=== PATIENT | female | born 1970 | race Caucasian/White ===

== ENCOUNTER 2017-04-07 17:58 | Emergency (ER) | payer OTHER ==
[~2017-04-07] VITALS: Ht 167.6 cm; Wt 102.0 kg
[~2017-04-07 17:58] MED LIST: ACET500C5 PO; ALBU8.5H3 INH; AZIT250T94 PO; CIPR500T4 PO; GLIP5TAB13 PO; IBUP200C PO; METF-480 PO; PRED20TA PO; TAMS-14 PO; [UNRECOGNIZED DRUG - REMARK]
[2017-04-07 18:09] VITALS: Ht 167.6 cm; Wt 102.0 kg
[2017-04-07] MEDS ORDERED: ONDANSETRON (ODT) 4 MG TAB ODT STA (19:27)
[2017-04-07] MEDS ORDERED: HYDROCODONE/APAP (10/325) TAB PO ONE (19:30)
[2017-04-07] MEDS ORDERED: DIPHTH/TET/ACEL PERTUSS (ADULT) 0.5 ML VIAL IM* ONE (19:30)
[2017-04-07] MEDS ORDERED: LIDOCAINE 1% (MDV) 20 ML INJ SC ONE (19:30)
--- NOTE | 2017-04-07 20:29 | RADRPT ---
PROCEDURE: XR left third toe CLINICAL INDICATION: Left third toe pain TECHNIQUE: Three views of the left third toe are available for review COMPARISON: No prior studies are available for comparison. FINDINGS: There is an acute mildly displaced fracture along the medial margin of the base of the third distal phalanx. No other fractures are identified. There is soft tissue swelling of the third digit. IMPRESSION: 1. Acute mildly displaced fracture along the medial margin of the base of the third distal phalanx w ith soft tissue swelling of the third digit. RPTAT: UU .Raul Black MD, MD Date Time Electronically viewed and signed by .Raul Black MD, on 04/07/2017 20:28 .K/
[2017-04-07] MEDS ORDERED: ONDA4TAB14 PO (20:39)
[2017-04-07] MEDS ORDERED: CLIN-73 PO (20:39)
[2017-04-07] MEDS ORDERED: HYDR-906 PO (20:39)
--- NOTE | 2017-04-07 21:27 | ERD ---
ER Documentation Chief Complaint Chief Complaint PT presents with L foot pain X 2 days HPI This is a 46-year-old female who presents to the emergency room with a laceration to the left third toe just prior to arrival. The patient states that they were trying to hang a mirror or picture frame and it fell and it shattered. The patient sustained a complicated and irregular laceration to the medial aspect of the left third toe. She describes throbbing pain that is 6 out of 10. She states unknown tetanus status. Pain is worse with movement. ROS All systems reviewed and are negative except as per history of present illness. Medications Home Meds Active Scripts Clindamycin Hcl* (Clindamycin Hcl*) 300 Mg Capsule, 300 MG PO TID for 10 Days, CAP Prov:UZAIR SERVIN MD 04/07/17 Ondansetron (Ondansetron Odt) 4 Mg Tab.rapdis, 4 MG PO Q6H Y for NAUSEA AND/OR VOMITING, #10 TAB Prov:UZAIR SERVIN MD 04/07/17 Hydrocodone/Acetaminophen (Maynard 5-325 Tablet) 1 Each Tablet, 1 TAB PO Q6H Y for PAIN, #7 TAB Prov:UZAIR SERVIN MD 04/07/17 Albuterol Sulfate* (Proair HFA*) 8.5 Gm Hfa.aer.ad, 2 PUFF INH Q4, #1 INHALER Prov:TRISTAN MARCH PA-C 06/22/16 Azithromycin* (Zithromax*) 250 Mg Tablet, 250 MG PO .ZPACK DIRECTED, #6 TAB TAKE 500 MG (2 TABS) THE FIRST DAY THEN 250 MG (1 TAB) DAYS 2-5 Prov:TRISTAN MARCH PA-C 06/22/16 Acetaminophen* (Tylophen*) 500 Mg Capsule, 1 CAP PO Q6H Y for PAIN AND OR ELEVATED TEMP, #20 CAP Prov:TRISTAN MARCH PA-C 06/22/16 Prednisone* (Prednisone*) 20 Mg Tab, 40 MG PO DAILY for 4 Days, TAB Prov:SABINE WAGONER PA-C 05/30/15 Albuterol Sulfate* (Proair HFA*) 8.5 Gm Hfa.aer.ad, 2 PUFF INH Q4, #1 INHALER Prov:SABINE WAGONER PA-C 05/30/15 Prednisone* (Prednisone*) 20 Mg Tab, 40 MG PO DAILY for 4 Days, TAB Prov:CHRIST SIDDIQUI Claudio 05/23/15 Albuterol Sulfate* (Proair HFA*) 8.5 Gm Hfa.aer.ad, 2 PUFF INH Q4, #1 INHALER Prov:CHRIST SIDDIQUI Claudio 05/23/15 Azithromycin* (Zithromax*) 250 Mg Tablet, 250 MG PO .ZPACK DIRECTED, #6 TAB TAKE 500 MG (2 TABS) THE FIRST DAY THEN 250 MG (1 TAB) DAYS 2-5 Prov:CHRIST SIDDIQUI Claudio 05/23/15 Ciprofloxacin Hcl* (Ciprofloxacin Hcl*) 500 Mg Tab, 500 MG PO BID@06,18 for 7 Days Prov:SUE MCKEON NP 01/12/14 Tamsulosin Hcl* (Flomax*) 0.4 Mg Capsr, 0.4 MG PO HS for 10 Days Prov:SUE MCKEON NP 01/12/14 Reported Medications Glipizide* (Glipizide*) 5 Mg Tablet, 5 MG PO BID, TAB 01/09/14 Metformin* (Glucophage*) 850 Mg Tablet, 850 MG PO BID, TAB 01/09/14 [Dm Medicine] No Conflict Check 06/08/13 Ibuprofen* (Ibuprofen*) 200 Mg Capsule, 400 MG PO Q6 Y for KAREN 06/08/13 Allergies Allergies: Coded Allergies: No Known Allergy (Unverified , 05/30/15) PMhx/Soc History of Surgery: No Anesthesia Reaction: No Hx Neurological Disorder: No Hx Respiratory Disorders: No Hx Cardiac Disorders: No Hx Psychiatric Problems: No Hx Miscellaneous Medical Probl: Yes (DM) Hx Alcohol Use: No Hx Substance Use: No Hx Tobacco Use: No Smoking Status: Never smoker FmHx Family History: diabetes Physical Exam Vitals Vital Signs Date Time Temp Pulse Resp B/P Pulse Ox O2 Delivery O2 Flow Rate FiO2 04/07/17 18:09 98.4 98 16 153/83 98 Physical Exam General: Well developed, well nourished, no acute distress Head: Normocephalic, atraumatic. Eyes: EOM intact ENT: Moist mucous membranes Neck: Full ROM Respiratory: No respiratory distress Cardiovascular: Good capillary refill Abdominal: Nondistended : Deferred MSK: The patient's left third toe has an irregular and T-shaped laceration of the medial aspect totaling approximately 3.0 cm. Soft tissue is exposed but no evidence of ligamentous, vascular tendinous injury. Good capillary refill. No significant limited range of motion. 2+ dorsalis pedis and posterior tibial pulses. Neurologic: Alert and oriented, moving all extremities, normal speech, steady gait Skin: Laceration as described above, no evidence of foreign body Psych: Normal mood Results 24 hrs Current Medications Medications (Trade) Dose Ordered Sig/[place] Route PRN Reason Start Time Stop Time Status Last Admin Dose Admin Acetaminophen/ Hydrocodone Bitart (Maynard (10/325)) 1 tab ONCE ONCE PO 04/07/17 19:30 04/07/17 19:31 DC 04/07/17 19:46 Ondansetron HCl (Zofran Odt) 4 mg ONCE STAT ODT 04/07/17 19:27 04/07/17 19:29 DC 04/07/17 19:46 Lidocaine (Xylocaine 1% (Mdv) 20 ml) 20 ml ONCE ONCE SC 04/07/17 19:30 04/07/17 19:31 DC Diphtheria/ Tetanus/Acell Pertussis (Adacel) 0.5 ml ONCE ONCE IM* 04/07/17 19:30 04/07/17 19:31 DC 04/07/17 19:47 Procedures/MDM X-ray left third toe: IMPRESSION: 1. Acute mildly displaced fracture along the medial margin of the base of the third distal phalanx with soft tissue swelling of the third digit. RPTAT: UU PROCEDURES: Laceration Note: The patient was verbally consented prior to procedure and understands the risks , benefits, and alternatives. The patient is agreeable to procedure and has given verbal consent. Length: 3.0 to the left third toe cm Irrigation: Thorough irrigation was performed with pressure is normal saline Inspection: There is no evidence of deep tissue or structural injury, no evidence of foreign bodies Anesthesia: Digital block using sterile procedure, 1% lidocaine without epinephrine approximately 4 cc total with good anesthesia Repair: Single-layer repair using three-point 0 Prolene a total number of 5 sutures with good approximation. A clean dressing was applied. The patient tolerated the procedure well with no complications. Splint Application Note: Splint type: Aleksey tape and orthopedic walking shoe Extremity: Left third toe Indication: Toe fracture The patient was consented at bedside prior to splint application and states understanding of risks, benefits, and alternatives. The patient was neurovascularly intact prior to and status post application of the splint. The patient tolerated the procedure well and there were no complications. MEDICAL DECISION MAKING: Pain control provided with medications. Tetanus updated. ER COURSE: Patient's wound was thoroughly irrigated and repaired as documented above. The patient does have evidence of a fracture. This is technically an open fracture and given the patient's diabetes she would benefit from empiric antibiotics in the form of clindamycin. I believe prompt outpatient follow-up at [facility] will be reasonable. Referral information provided. The patient was splinted and return precautions were discussed including spreading redness, fevers or chills. The patient verbalized understanding and a soda fountain operator was used during her ER course. I kept the patient and/or family informed of laboratory and diagnostic imaging results throughout the emergency room course. DISPOSITION PLAN: We discussed follow up with the patient's primary care doctor within 24 to 48 hours as needed. We also discussed return to the emergency room for worsening symptoms or worsening condition. Outpatient referral: Podiatry Discharge Medications: Maynard, Zofran, clindamycin Departure Diagnosis: Primary Impression: Toe fracture, left Encounter type: initial encounter Toe: unspecified toe Fracture type: open Fracture alignment: displaced Qualified Code: S92.912B - Open displaced fracture of phalanx of toe of left foot, unspecified toe, initial encounter Additional Impression: Laceration of toe Encounter type: initial encounter Toe: lesser toe Damage to nail status: without damage Foreign body presence: without foreign body Laterality: left Qualified Code: S91.115A - Laceration of lesser toe of left foot without foreign body present or damage to nail, initial encounter Condition: Stable Patient Instructions: Finger and Toe Fractures (Broken Finger or Toe), Laceration, All Referrals: [facility]) Usted se [place] hecho un examen mdico de control que le indica que no est en guillaume condicin que requiera tratamiento urgente en el Departamento de Emergencia. Un estudio ms profundo y el tratamiento de lozano condicin pueden esperar sin ningn riesgo hasta que usted sea atendida/o en el consultorio de lozano mdico o guillaume cl ramona. Es responsabilidad suya arreglar guillaume curtis para el seguimiento del jesus. MANEJO DE CONDICIONES NO URGENTES EN EL FUTURO 1) Si usted tiene un mdico de atencin primaria: Usted debera llamar a lozano mdico de atencin primaria antes de venir al departamento de emergencia. Despus de las horas de consultorio, lozano doctor o lozano asociado/a est disponible por telfono. El mdico o enfermero de roman en el servicio telefnico puede asesorarle por felix medio para atender el problema, o jesus contrario se puede programar guillaume curtis. 2) Si usted no tiene un mdico de atencin primaria: Llame al mdico o clnica de referencia que aparece abajo ashleigh las horas de consultorio para hacer guillaume curtis para que le vean. CLINICAS: [facility] [phone] [address] [facility] [phone] [address] [facility] [facility]. [facility] [phone] [facility] [phone] [facility] [place] [id number] [phone] [facility]. [phone] [address] . [facility] () Usted se [place] hecho un examen mdico de control que le indica que no est en guillaume condicin que requiera tratamiento urgente en el Departamento de Emergencia. Un estudio ms profundo y el tratamiento de lozano condicin pueden esperar sin ningn riesgo hasta que usted sea atendida/o en el consultorio de lozano mdico o guillaume cl ramona. Es responsabilidad suya arreglar guillaume curtis para el seguimiento del jesus. MANEJO DE CONDICIONES NO URGENTES EN EL FUTURO 1) Si usted tiene un mdico de atencin primaria: Usted debera llamar a lozano mdico de atencin primaria antes de venir al departamento de emergencia. Despus de las horas de consultorio, lozano doctor o lozano asociado/a est disponible por telfono. El mdico o enfermero de roman en el servicio telefnico puede asesorarle por felix medio para atender el problema, o jesus contrario se puede programar guillaume curtis. 2) Si usted no tiene un mdico de atencin primaria: Llame al mdico o condado institucions de referencia que aparece abajo ashleigh las horas de consultorio para hacer guillaume curtis para que le vean. SI USTED NO PUEDE PAGAR PARA SHARI UN MEDICO puede ir a: [facility] [address] [place] [address] [facility] [address] [place] [address] [facility] [address] [place] [address] [facility] [facility] [address] [place], [place] [phone] Additional Instructions: Suture removal in 10 days. Follow up with mapping specialist [place]lex[place]. Return for fever , worsening pain, redness or drainage. Llame al doctor MAANA y augustine guillaume CURTIS PARA DENTRO DE 2-3 MCRAE.Dgale a la secretaria que nosotros le instruimos hacer esta curtis.Avise o llame si lozano condicin se empeora antes de la curtis. Regresa aqui si peor o no mejor. UZAIR SERVIN MD Apr 07, 2017 21:27
== END 2017-04-07 20:53 | disposition home or self-care (01) ==
LOC: FTE 17:58
DX: S92.912B Unspecified fracture of left toe(s), initial encounter for open fracture (principal); E11.9 Type 2 diabetes mellitus without complications; W20.8XXA Other cause of strike by thrown, projected or falling object, initial encounter; Y92.9 Unspecified place or not applicable; Z23 Encounter for immunization; Z79.84 Long term (current) use of oral hypoglycemic drugs
CPT/HCPCS: 12002; 73660; 90471; 90715; Z7502; Z7610

== ENCOUNTER 2017-04-15 14:18 | Emergency (ER) | END 2017-04-15 20:10 | disposition home or self-care (01) ==

== ENCOUNTER 2017-04-20 05:55 | Emergency (ER) | END 2017-04-20 11:23 | disposition home or self-care (01) ==

== ENCOUNTER 2017-05-15 07:05 | Emergency (ER) | END 2017-05-15 08:37 | disposition home or self-care (01) ==

== ENCOUNTER 2017-05-21 03:31 | Emergency (ER) | END 2017-05-21 03:50 | disposition left against medical advice (07) ==

== ENCOUNTER 2017-05-22 17:16 | Emergency (ER) | END 2017-05-22 20:18 | disposition home or self-care (01) ==

== ENCOUNTER 2018-11-25 20:22 | Emergency (ER) | payer OTHER ==
[~2018-11-25] VITALS: Ht 160 cm; Wt 104.5 kg
[~2018-11-25 20:22] MED LIST changes: +ALBU18HF INHALATION; -ALBU8.5H3 INH; +ALBU8.5H8 INH; +AMOX1TAB9 PO; +AMOX500C2 PO; +AZIT250T PO; -AZIT250T94 PO; +CEPH-443 PO; +CLIN300C10 PO; +CYCL10TA7 PO; +GUAI-637 PO; +GUAI120S25 PO; +HYDR-4011 PO; +IBUP-1542 PO; +IBUP-1982 PO; -IBUP200C PO; +IBUP800T48 PO; +NAPR-985 PO; +ONDA4TAB14 PO; +PROM5SYR2 PO; +SODI126M NASAL; +SULF1TAB31 PO; +TRAM50TA2 PO
[2018-11-25 20:23] VITALS: Ht 160 cm; Wt 104.5 kg
--- NOTE | 2018-11-26 04:35 | ERD ---
ER Documentation Chief Complaint Chief Complaint Pt reports bump on ABD x 1 week HPI 48-year-old female with no significant past medical history presents emergency department for abscess to the left lower abdomen for the past 1 month but worsening over the past couple of days. Pain is intermittent and there are no alleviating or exacerbating factors. No other symptoms reported at this time. ROS All systems reviewed and are negative except as per history of present illness. Medications Home Meds Active Scripts Ibuprofen* (Motrin*) 600 Mg Tab, 600 MG PO Q6, #30 TAB Prov:ELISA MURRAY PA-C 11/26/18 Sulfamethoxazole/Trimethoprim* (Bactrim Ds* Tablet) 1 Each Tablet, 1 TAB PO BID, #14 TAB Prov:ELISA MURRAY PA-C 11/26/18 Cephalexin* (Keflex*) 500 Mg Capsule, 500 MG PO TID for 7 Days, CAP Prov:ELISA MURRAY PA-C 11/26/18 Amoxicillin/Potassium Clav (Amox-Clav 500-125 mg Tablet) 500-125 mg Tab, 1 TAB PO BID for 10 Days, TAB Prov:GEMMA GARY PA-C 10/31/18 Bomtudihzcy-T-Jrxnfsgjdz Hb* (Guaifenesin* DM Syrup) 120 Ml Syrup, 10 ML PO Q4H PRN for COUGH for 7 Days, ML Prov:GEMMA GARY PA-C 10/31/18 Prednisone* (Prednisone*) 20 Mg Tab, 40 MG PO DAILY for 4 Days, TAB Prov:XAVI HOLMAN MD 05/22/17 Albuterol Sulfate* (Proair HFA*) 8.5 Gm Hfa.aer.ad, 2 PUFF INH Q4H PRN for WHEEZING AND SOB, #1 INHALER Prov:XAVI HOLMAN MD 05/22/17 Promethazine HCl/Codeine (Prometh-Codein 6.25-10 mg/5 ml) 5 Ml Syrup, 5 ML PO QHS PRN for COUGH for 7 Days, #120 ML Prov:XAVI HOLMAN MD 05/22/17 Amoxicillin* (Amoxicillin*) 500 Mg Cap, 500 MG PO TID for 7 Days, CAP Prov:XAVI HOLMAN MD 05/22/17 Guaifenesin* (Robitussin*) 100 Mg/5 Ml Syrup, 200 MG PO Q4H PRN for COUGH, #120 ML Prov:BARBARA SCOTT NP 05/15/17 Sodium Chloride (Saline Nasal Mist) 126 Ml Mist, 2 SPRAY NASAL Q2H PRN for NASAL CONGESTION, #1 BOTTLE Prov:BARBARA SCOTT NP 05/15/17 Albuterol Sulfate* (Ventolin HFA*) 18 Gm Hfa.aer.ad, 2 PUFF INHALATION Q4H, #1 INHALER Prov:BARBARA SCOTT NP 05/15/17 Naproxen* (Naprosyn*) 500 Mg Tablet, 500 MG PO BID PRN for PAIN AND/OR INFLAMMATION, #30 TAB Prov:ASHANTI BLANTON PA-C 04/20/17 Tramadol HCl (Tramadol HCl) 50 Mg Tablet, 50 MG PO Q4 PRN for PAIN, #20 TAB Prov:ASHANTI BLANTON PA-C 04/20/17 Acetaminophen* (Tylophen*) 500 Mg Capsule, 1 CAP PO Q6H PRN for PAIN AND OR ELEVATED TEMP, #20 CAP Prov:IRINA MAN 04/15/17 Cyclobenzaprine Hcl* (Cyclobenzaprine Hcl*) 10 Mg Tablet, 10 MG PO Q12 PRN for MUSCLE SPASMS, #20 TAB Prov:IRINA MAN 04/15/17 Ibuprofen* (Motrin*) 800 Mg Tab, 800 MG PO Q8 PRN for PAIN AND OR ELEVATED TEMP, #30 TAB Prov:IRINA MAN 04/15/17 Cephalexin* (Keflex*) 500 Mg Capsule, 500 MG PO QID for 5 Days, CAP Prov:IRINA MAN 04/15/17 Clindamycin Hcl* (Clindamycin Hcl*) 300 Mg Capsule, 300 MG PO TID for 10 Days, CAP Prov:UZAIR SERVIN MD 04/07/17 Ondansetron (Ondansetron Odt) 4 Mg Tab.rapdis, 4 MG PO Q6H PRN for NAUSEA AND/OR VOMITING, #10 TAB Prov:UZAIR SERVIN MD 12/18/17 Hydrocodone/Acetaminophen ([place] 5-325 Tablet) 1 Each Tablet, 1 TAB PO Q6H PRN for PAIN, #7 TAB Prov:UZAIR SERVIN MD 04/07/17 Albuterol Sulfate* (Proair HFA*) 8.5 Gm Hfa.aer.ad, 2 PUFF INH Q4, #1 INHALER Prov:TRISTAN MARCHC 06/22/16 Azithromycin* (Zithromax*) 250 Mg Tablet, 250 MG PO .ZPACK DIRECTED, #6 TAB TAKE 500 MG (2 TABS) THE FIRST DAY THEN 250 MG (1 TAB) DAYS 2-5 Prov:TRISTAN MARCHC 06/22/16 Acetaminophen* (Tylophen*) 500 Mg Capsule, 1 CAP PO Q6H PRN for PAIN AND OR ELEVATED TEMP, #20 CAP Prov:TRISTAN MARCHC 06/22/16 Prednisone* (Prednisone*) 20 Mg Tab, 40 MG PO DAILY for 4 Days, TAB Prov:SABINE WAGONER PA-C 05/30/15 Albuterol Sulfate* (Proair HFA*) 8.5 Gm Hfa.aer.ad, 2 PUFF INH Q4, #1 INHALER Prov:SABINE WAGONER PA-C 05/30/15 Prednisone* (Prednisone*) 20 Mg Tab, 40 MG PO DAILY for 4 Days, TAB Prov:CHRIST SIDDIQUI 05/23/15 Albuterol Sulfate* (Proair HFA*) 8.5 Gm Hfa.aer.ad, 2 PUFF INH Q4, #1 INHALER Prov:CHRIST SIDDIQUI 05/23/15 Azithromycin* (Zithromax*) 250 Mg Tablet, 250 MG PO .ZPACK DIRECTED, #6 TAB TAKE 500 MG (2 TABS) THE FIRST DAY THEN 250 MG (1 TAB) DAYS 2-5 Prov:CHRIST SIDDIQUI 05/23/15 Ciprofloxacin Hcl* (Ciprofloxacin Hcl*) 500 Mg Tab, 500 MG PO BID@06,18 for 7 Days Prov:SUE MCKEON NP 01/12/14 Tamsulosin Hcl* (Flomax*) 0.4 Mg Capsr, 0.4 MG PO HS for 10 Days Prov:SUE MCKEON FRAME CATCHER 01/12/14 Reported Medications Glipizide* (Glipizide*) 5 Mg Tablet, 5 MG PO BID, TAB 01/09/14 Metformin* (Glucophage*) 850 Mg Tablet, 850 MG PO BID, TAB 01/09/14 [Dm Medicine] No Conflict Check 06/08/13 Ibuprofen* (Ibuprofen*) 200 Mg Capsule, 400 MG PO Q6 PRN for KAREN 06/08/13 Allergies Allergies: Coded Allergies: No Known Allergy (Unverified , 05/21/17) PMhx/Soc Medical and Surgical Hx: pt denies Surgical Hx History of Surgery: No Anesthesia Reaction: No Hx Neurological Disorder: No Hx Respiratory Disorders: Yes (Asthma) Hx Cardiac Disorders: No Hx Psychiatric Problems: No Hx Miscellaneous Medical Probl: Yes (s/p repair of 3rd toe laceration ) Hx Alcohol Use: No Hx Substance Use: No Hx Tobacco Use: No Smoking Status: Never smoker FmHx Family History: No diabetes Physical Exam Vitals Vital Signs Date Temp Pulse Resp B/P (MAP) Pulse Ox O2 O2 Flow FiO2 Time Delivery Rate 11/25/18 98.6 95 24 156/82 98 20:23 (106) Physical Exam Const: No acute distress Head: Atraumatic Eyes: Normal Conjunctiva ENT: Normal External Ears, Nose and Mouth. Neck: Full range of motion. No meningismus. Resp: Clear to auscultation bilaterally Cardio: Regular rate and rhythm, no murmurs Abd: Soft, non tender, non distended. Normal bowel sounds Skin: Fluctuant abscess measuring approximately 2 cm x 2 cm to the left lower abdomen. No active discharge. No surrounding erythema. Back: No midline or flank tenderness Ext: No cyanosis, or edema Neur: Awake and alert Psych: Normal Mood and Affect Procedures/MDM 48-year-old female presenting to the emergency department with abscess to the left lower abdomen. The patient was explained the full risks, benefits, alternatives to incision and drainage of the abscess and she gave verbal consent. Abscess Incision and Drainage with irrigation by me: Location: Left lower abdomen Anesthesia: Local 1% Lidocaine Technique: Irrigated. Disrupted loculations w/ instrumentation Packing: None Complications: Neurovascularly intact post procedure 48 hour wound check. Scar minimization instructions given. No evidence of life-threatening pathology at time of discharge. Pt/family in agreement with discharge plan/diagnosis. Pt/family advised to return immedi ately with any new or worsening symptoms. Follow-up with primary care physician within the next 1-2 days. Departure Diagnosis: Primary Impression: Abscess Condition: Fair Patient Instructions: Abscess, Incision And Drainage Additional Instructions: Call your primary care doctor TOMORROW for an appointment during the next 1-2 days.See the doctor sooner or return here if your condition worsens before your appointment time. ELISA MURRAY PA-C Nov 26, 2018 04:35
== END 2018-11-26 00:17 | disposition home or self-care (01) ==
LOC: FTE 20:22
DX: L02.211 Cutaneous abscess of abdominal wall (principal); J45.909 Unspecified asthma, uncomplicated; Z79.84 Long term (current) use of oral hypoglycemic drugs
CPT/HCPCS: 10060; Z7502; Z7610